=== PATIENT | male | born 2000 | race Caucasian/White ===

== ENCOUNTER 2018-09-23 19:21 | Emergency (ER) | payer BC ==
[2018-09-23] MEDS ORDERED: SODIUM CHLORIDE 0.9% 1,000 ML IV STA ×2 (19:27)
[2018-09-23] MEDS ORDERED: SODIUM CHLORIDE 0.9% 500 ML 500 ML IV STA (19:27)
[2018-09-23] MEDS ORDERED: LORazepam 2 MG/ML INJ IV STA (19:27)
[2018-09-23] MEDS ORDERED: KETAMINE 10 MG/ML 20 ML VIAL IV ONE (19:27)
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
[2018-09-23 19:38] VITALS: RESP 20; TEMP 97.9
[2018-09-23 19:54] LABS: Basophils # (A) 0.1 k/uL (0-0.2); Basophils % (A) 1 %; Eosinophils # (A) 0.7 k/uL (0-0.7); Eosinophils % (A) 7 %; HCT 45.3 % (39.0-53.0); Lymphocytes # (A) 4.5 k/uL (1.0-4.8); Lymphocytes % (A) 41 %; MCH 29.3 pg (25.0-35.0); MCHC 33.1 g/dL (31.0-37.0); MCV 88.7 fL (80.0-100.0); Mean Platelet Volume 7.5; Monocytes # (A) 0.8 k/uL (0-1.0); Monocytes % (A) 7 %; Neutrophils # (A) 4.5 k/uL (1.3-7.7); Neutrophils % (A) 41 %; Platelet Count 273 k/uL (150-450); RBC 5.11 m/uL (4.30-5.90); RDW 12.4 % (11.5-15.5); WBC 11.1 k/uL (4.0-11.0)
[2018-09-23 20:07] LABS: Creatine Kinase 258 U/L (55-170)
[2018-09-23 20:09] LABS: ALT 96 U/L (21-72); AST 37 U/L (17-59); Alcohol <10 mg/dL; Alkaline Phosphatase 49 U/L (38-126); Amylase 54 U/L (30-110); Anion Gap 12 mmol/L; Blood Urea Nitrogen 17 mg/dL (9-20); Calcium 8.9 mg/dL (8.4-10.2); Carbon Dioxide 21 mmol/L (22-30); Chloride 106 mmol/L (98-107); Glucose 129 mg/dL (74-99); Lipase 107 U/L (23-300); Potassium 4.1 mmol/L (3.5-5.1); Sodium 139 mmol/L (137-145); Total Bilirubin 0.4 mg/dL (0.2-1.3); Total Protein 6.7 g/dL (6.3-8.2)
[2018-09-23 20:15] LABS: Partial Thromboplastin Time 22.8 sec (22.0-30.0); Prothrombin Time 10.6 sec (9.0-12.0)
[2018-09-23 20:20] LABS: Creatine Kinase MB 0.5 ng/mL (0.0-2.4); Troponin I <0.012 ng/mL (0.000-0.034)
[2018-09-23] MEDS ORDERED: HYDROmorphone 1 MG/ML 1 ML SYRINGE IVP STA (20:30)
[2018-09-23 20:36] VITALS: BP 144/79; PULSE 77
== END 2018-09-23 20:34 | disposition short-term general hospital (02) ==
LOC: EC 19:21
DX: T21.22XA Burn of second degree of abdominal wall, initial encounter (principal); T23.292A Burn of second degree of multiple sites of left wrist and hand, initial encounter; T23.291A Burn of second degree of multiple sites of right wrist and hand, initial encounter; T25.222A Burn of second degree of left foot, initial encounter; T25.221A Burn of second degree of right foot, initial encounter; T21.11XA Burn of first degree of chest wall, initial encounter; T31.20 Burns involving 20-29% of body surface with 0% to 9% third degree burns; Z88.0 Allergy status to penicillin; W40.1XXA Explosion of explosive gases, initial encounter; Y92.009 Unspecified place in unspecified non-institutional (private) residence as the place of occurrence of the external cause
CPT/HCPCS: 36415; 86900; 86901; 80053; 82150; 82550; 82553; 83605; 83690; 84484; 85025; 85610; 85730; 86850; 80320; 99291; 96374; 96375; 96361; J2060; J1170